=== PATIENT | female | born 1950 | race Caucasian/White ===

== ENCOUNTER → 2020-05-17 | Outpatient (CLI) | payer BC, OTHER ==
--- NOTE | 2020-05-18 08:24 | EKG ---
[facility] [place] [address] ELECTROCARDIOGRAM REPORT Name: YASSINE GAFFNEY Room #: REG [facility]#: [id number] Admission: 05/17/20 Attend Phys: Shaun Garcia MD Discharge: Date of : 52 Report #: [id number] THIS REPORT FOR: cc: Sharon Saenz MD, Jennifer S. MD Lundgren, Craig H. MD [facility] THIS REPORT FOR: //name// [facility] Test Date: 2020-05-17 Test Time: 11:30:03 Pat Name: YASSINE GAFFNEY Department: Room: Gender: F Health Care Specialist: TITA : 1950 Requested By: Shaun Garcia Order Number: [id number] MD: Santos Andres Measurements Intervals [place] Rate: 51 P: 22 UT: 157 QRS: -38 QRSD: 103 T: 56 QT: 453 QTc: 418 Interpretive Statements Sinus bradycardia Left axis deviation No previous ECG available for comparison Electronically Signed On 05-18-2020 8:24:10 CDT by Santos Andres [email or web address] <ELECTRONICALLY SIGNED> By: Santos Andres MD, [facility] 05/18/20 0824 1130 1130 Santos Andres MD, [facility] /EPI
== END ==
LOC: CV 11:06
PROVIDERS: ATTEND Otolaryngology
DX: C44.01 Basal cell carcinoma of skin of lip (principal); I73.01 Raynaud's syndrome with gangrene; R00.1 Bradycardia, unspecified; I44.4 Left anterior fascicular block